=== PATIENT | female | born 1995 | race African-American/Black ===

== ENCOUNTER 2021-05-28 11:33 | Emergency (ER) | payer OTHER ==
[~2021-05-28] VITALS: Ht 165.1 cm; Wt 72.6 kg
[2021-05-28 11:35] VITALS: BP 134/89
--- NOTE | 2021-05-28 11:43 | NUR ---
NO BEDS AVAILABLE AT THIS TIME. PT TO WAIT IN LOBBY FOR EVALUATION BY
[2021-05-28] MEDS ORDERED: KETOROLAC 30 MG/ML VIAL IM ONE (12:00)
--- NOTE | 2021-05-28 12:09 | NUR ---
PT TAKEN TO CHAIR A
[2021-05-28] MEDS ORDERED: HYDROcodone/APAP 5/325 MG 1 TAB TAB PO ONE (12:50)
[2021-05-28 12:51] LABS: BASOPHILS # (AUTO) 0.1 K/uL (0.00-0.22); BASOPHILS % (AUTO) 0.5 % (0.0-2.0); EOSINOPHILS # (AUTO) 0.3 K/uL (0-0.4); EOSINOPHILS % (AUTO) 2.7 % (0.0-4.0); HEMATOCRIT 45.9 % (36-48); LYMPHOCYTES # (AUTO) 2.7 K/uL (2.5-16.5); MEAN CORPUSCULAR HEMOGLOBIN 32 pg (27-31); MEAN CORPUSCULAR HGB CONC 33 g/dL (33-37); MEAN CORPUSCULAR VOLUME 98.3 fL (80-94); MONOCYTES # (AUTO) 0.5 K/uL (0.8-1.0); MONOCYTES % (AUTO) 4.1 % (1.7-9.3); NEUTROPHILS # (AUTO) 7.8 K/uL (1.8-7.7); NEUTROPHILS % (AUTO) 68.7 % (42.2-75.2); PLATELET COUNT (AUTO) 200 K/uL (140-450); RED BLOOD CELL COUNT(AUTO) 4.66 MIL/uL (4.20-5.40); RED CELL DISTRIBUTION WIDTH 13.6 % (11.6-13.7); WHITE BLOOD COUNT (AUTO) 11.4 K/uL (4.8-10.8)
--- NOTE | 2021-05-28 12:59 | NUR ---
25 Y/O FEMALE BIBA FROM HOME C/O SUDDEN ONSET EPIGASTRIC PAIN RADIATING TO BACK. PT HAS HX OF GALLSTONES AND STATES IT FEELS SIMILAR. DENIES TAKING ANYTHING FOR PAIN PMH:"BOARDERLINE ANEMIC" ALLERGIES:AMOXICILLIN AND LATEX
[2021-05-28 13:33] LABS: ALBUMIN 4.1 g/dL (3.4-5.0); ANION GAP 12.3 (8-16); CARBON DIOXIDE 27.1 mmol/L (21-32); CREATININE 1.1 mg/dL (0.6-1.3); POTASSIUM 4.4 mmol/L (3.5-5.1); TOTAL BILIRUBIN 0.3 mg/dL (0.0-1.0)
[2021-05-28] MEDS ORDERED: TRAM50TA1 PO (13:55)
--- NOTE | 2021-05-28 14:12 | NUR ---
Patient discharged with v/s stable. Written and verbal after care instructions ABOUT ABDOMINAL PAIN given and explained. Patient alert, oriented and verbalized understanding of instructions. Ambulatory with steady gait. All questions addressed prior to discharge. ID band removed. Patient advised to follow up with PMD. Rx of TRAMADOL given. Patient educated on indication of medication including possible reaction and side effects. Opportunity to ask questions provided and answered.
== END 2021-05-28 14:12 | disposition home or self-care (01) ==
LOC: MED 11:33
DX: R10.13 Epigastric pain (principal); R11.0 Nausea; Z88.1 Allergy status to other antibiotic agents; Z91.040 Latex allergy status; Z79.899 Other long term (current) drug therapy
CPT/HCPCS: 36415; 80053; 81002; 81025; 83690; 85025; 96372; 99283; J1885